=== PATIENT | female | born 1980 | race Caucasian/White ===

== ENCOUNTER 2019-02-11 01:40 | Emergency (ER) | payer OTHER ==
[~2019-02-11] VITALS: Ht 162.6 cm; Wt 126.6 kg
[2019-02-11 01:53] VITALS: BP 162/103
[2019-02-11] MEDS ORDERED: ORE25 PO (01:55)
--- NOTE | 2019-02-11 01:59 | NUR ---
PT TAKEN TO BED 3
[2019-02-11 02:11] LABS: APPEARANCE,URINE CLEAR (CLEAR); BILIRUBIN,URINE NEGATIVE (NEGATIVE); BLOOD, URINE 1+ (NEGATIVE); COLOR,URINE YELLOW (YELLOW); LEUKOCYTE ESTERASE ,URINE TRACE (NEGATIVE); NITRITE, URINE NEGATIVE (NEGATIVE); PH,URINE 6.5 (5.0-9.0); UGLUCOSE NEGATIVE (NEGATIVE)
--- NOTE | 2019-02-11 02:12 | NUR ---
FLANK PAIN X 4 DAYS RADIATING TO LLQ. STATES SHE HAS URINARY FREQUENCY AND HESITANCY. STATES THE PAIN AT TIMES CAUSES HER TO FEEL NAUSEA. DENIES COUGH, CP, SOB, FEVER AT THIS TIME.
[2019-02-11] MEDS ORDERED: KETOROLAC 60 MG/2 ML VIAL IM ONE (03:05)
--- NOTE | 2019-02-11 03:10 | NUR ---
no needs stated at this time.
[2019-02-11] MEDS ORDERED: cefTRIAXone 1,000 MG in LIDOCAINE MPF 1% - 5 mL VIAL 2.1 ML IM ONE (03:45)
[2019-02-11 04:01] VITALS: BP 148/97
--- NOTE | 2019-02-11 04:01 | NUR ---
Patient discharged with v/s stable. Written and verbal after care instructions given and explained. Patient alert, oriented and verbalized understanding of instructions. Ambulatory with steady gait. All questions addressed prior to discharge. ID band removed. Patient advised to follow up with PMD. Rx of bactrim, motrin given. Patient educated on indication of medication including possible reaction and side effects. Opportunity to ask questions provided and answered.
[2019-02-11 06:53] LABS: RBC,URINE 0-5 /HPF (0-5); WBC,URINE 0-5 /HPF (0-5)
== END 2019-02-11 04:01 | disposition home or self-care (01) ==
LOC: MED 01:40
DX: N39.0 Urinary tract infection, site not specified (principal); Z79.899 Other long term (current) drug therapy
CPT/HCPCS: 81001; 81025; 96372; 99283; J0696; J1885; J2001

== ENCOUNTER 2019-07-17 02:12 | Emergency (ER) | payer OTHER ==
[~2019-07-17] VITALS: Ht 162.6 cm; Wt 117.9 kg
[~2019-07-17 02:12] MED LIST: ORE25 PO
[2019-07-17 02:15] VITALS: BP 157/75
--- NOTE | 2019-07-17 02:15 | NUR ---
PT AMBULATED TO BED
--- NOTE | 2019-07-17 02:25 | NUR ---
PT CAME TO ER C/O BILATERAL LOWER BACK PAIN X 4 HOURS. PT TOOK IBUPROFEN 400MG AT 2300 WITHOUT ANY RELIEF. PT DENIES TRAUMA OR INJURY. PT DENIES BURNING UPON URINATION. PAIN LEVEL 8/10, ACHING. PT ALSO FEELS NAUSEA AND SHAKEY. PT VOMITED X1 AT 0130. NKA. MED HX: HTN. SAFETY MEASURES IN PLACE. WAITING FOR ERMD TO EVALUATE PT.
[2019-07-17] MEDS ORDERED: ONDANSETRON 4 MG/2 ML VIAL IVP ONE (03:00)
[2019-07-17] MEDS ORDERED: MORPHINE SULFATE 4 MG/ML SYR IVP ONE (03:00)
[2019-07-17 03:03] LABS: APPEARANCE,URINE CLEAR (CLEAR); BILIRUBIN,URINE NEGATIVE (NEGATIVE); BLOOD, URINE 1+ (NEGATIVE); COLOR,URINE YELLOW (YELLOW); LEUKOCYTE ESTERASE ,URINE 1+ (NEGATIVE); NITRITE, URINE NEGATIVE (NEGATIVE); PH,URINE 5.5 (5.0-9.0); UGLUCOSE NEGATIVE (NEGATIVE)
[2019-07-17 03:16] LABS: RBC,URINE 0-5 /HPF (0-5)
[2019-07-17] MEDS ORDERED: KETOROLAC 30 MG/ML VIAL IVP ONE (03:25)
[2019-07-17] MEDS ORDERED: CIPROFLOXACIN 250 MG TAB PO ONE (03:25)
--- NOTE | 2019-07-17 03:35 | NUR ---
PT STATES NAUSEA WENT AWAY. PAIN LEVEL 0/10. ERMD MADE AWARE
[2019-07-17] MEDS ORDERED: CIPROFLOXACIN 250 MG TAB ONE ×2 (03:44→03:52)
--- NOTE | 2019-07-17 03:50 | NUR ---
Patient discharged with v/s stable. Written and verbal after care instructions given and explained. Patient encouraged to drink plenty of fluids and take antibiotics as prescribed. Patient alert, oriented and verbalized understanding of instructions. Ambulatory with steady gait. All questions addressed prior to discharge. ID band removed. Patient advised to follow up with PMD. Rx of IBUPROFEN, ZOFRAN, AND CIPRO WAS given. Patient educated on indication of medication including possible reaction and side effects. Opportunity to ask questions provided and answered.
[2019-07-17 03:52] VITALS: BP 172/90
== END 2019-07-17 03:50 | disposition home or self-care (01) ==
LOC: MED 02:12
DX: N39.0 Urinary tract infection, site not specified (principal); I10 Essential (primary) hypertension; Z98.890 Other specified postprocedural states; Z79.899 Other long term (current) drug therapy
CPT/HCPCS: 81001; 87086; 96374; 96375; 99283; J1885; J2270; J2405